=== PATIENT | female | born 1990 | race Caucasian/White ===

== ENCOUNTER 2017-03-14 12:50 | Emergency (ER) | payer SELFPAY ==
[2017-03-14 13:00] VITALS: BP 137/78
== END 2017-03-14 15:24 | disposition left against medical advice (07) ==
LOC: UCEAST 12:50
DX: M54.9 Dorsalgia, unspecified (principal); Z53.21 Procedure and treatment not carried out due to patient leaving prior to being seen by health care provider

== ENCOUNTER 2018-01-02 08:34 | Emergency (ER) | payer MEDICAID, OTHER ==
[2018-01-02 08:52] VITALS: BP 128/85
--- NOTE | 2018-01-02 14:37 | UC ---
Valentina Cruz Thomas, scribed for Selene Murillo DO on 01/02/18 at 0919 . Palpitation/Dysrhythmia HP - HPI Summary HPI Summary: The patient is a 27 year old female complaining of pounding heart palpitations for the last two days. She reports that the palpitations are worst at night, although she occasionally has palpitations throughout the day. She has mild palpitations at urgent care. The patient denies anxiety, dizziness, chest pain, shortness of breath, nausea, vomiting, abdominal pain, jaw pain, neck pain, arm pain, headache, sore throat, and eye discharge. She was put on Wellbutrin one month ago for a diagnosis of seasonal depression. - History of Current Complaint Chief Complaint: UCChestPain Stated Complaint: CHEST COMPLAINT Time Seen by Provider: 01/02/18 08:42 Hx Obtained From: Patient Hx Last Menstrual Period: a few months ago, has implant Onset/Duration: Lasting Days, Still Present Timing: Intermittent Episodes Lasting: Severity Initially: Moderate Severity Currently: Mild Pain Intensity: 0 Pain Scale Used: 0-10 Numeric Character: Pounding Aggravating Factor(s): Nothing Alleviating Factor(s): Nothing Associated Signs & Symptoms: Positive: Negative - anxiety, dizziness, chest pain , shortness of breath, nausea, vomiting, abdominal pain, jaw pain, neck pain, arm pain, headache, sore throat, and eye discharge - Allergy/Home Medications Allergies/Adverse Reactions: Allergies Allergy/AdvReac Type Severity Reaction Status Date / Time No Known Allergies Allergy Verified 01/02/18 08:52 Home Medications: Home Medications Bupropion XL* [Wellbutrin XL *] 300 mg PO DAILY 01/02/18 [History Confirmed ] Ibuprofen TAB* [Advil TAB*] 800 mg PO Q6H PRN 01/02/18 [History Confirmed ] PMH/Surg Hx/FS Hx/Imm Hx GI/ History: Kidney Stones, Other Other GI/ History: Hernia Psychological History: Other Other Psychological History: Seasonal depression - Surgical History Surgical History: Yes Surgery Procedure, Year, and Place: 1989 hernia repair. 2010 Kidney stent, left - Family History Known Family History: Positive: Hypertension, Diabetes - Social History Alcohol Use: None Substance Use Type: None Smoking Status (MU): Former Smoker Type: Cigarettes Amount Used/How Often: 2-3/day Length of Time of Smoking/Using Tobacco: 5 years Have You Smoked in the Last Year: Yes Household Exposure Type: Cigarettes - Immunization History Most Recent Influenza Vaccination: 05/03/15 Most Recent Tetanus Shot: 05/03/15 Most Recent Pneumonia Vaccination: none Review of Systems Cardiovascular: Palpitations Psychological: Other - NEGATIVE: anxiety Is Patient Immunocompromised?: No All Other Systems Reviewed And Are Negative: Yes Physical Exam - Summary Physical Exam Summary: Appearance: Well-Appearing, No Pain Distress, Well-Nourished, Obese Eyes: conjunctiva clear, no discharge ENT: Hearing grossly normal, no muffled/hoarse voice. Neck: Normal, Supple Respiratory/Lung Sounds: Lungs clear, Normal breath sounds, No respiratory distress, No accessory muscle use Cardiovascular: RRR, No murmur Musculoskeletal: Normal Neurological: Alert, muscle tone normal Psychiatric:Normal, age appropriate behavior Skin: Normal, Warm, Dry, Normal color Triage Information Reviewed: Yes Vital Signs: Initial Vital Signs Temp 98.4 F 01/02/18 08:48 Pulse 86 01/02/18 08:48 Resp 16 01/02/18 08:48 BP 128/85 01/02/18 08:48 Pulse Ox 96 01/02/18 08:48 Vital Signs Reviewed: Yes Diagnostics - Laboratory Diagnostic Studies Completed/Ordered: EKG. Obtained at 8:40. Sinus rhythm at [address] changes. Palpitations Course/Dx - Course Course Of Treatment: The patient is a 27 year old female complaining of pounding heart palpitations for the last two days. She is on Wellbutrin. Medications reviewed. EKG shows sinus rhythm at [address] changes. Elevated BP noted. She will follow up with her primary care provider. The patient is agreeable with this plan. - Differential Dx/Diagnosis Provider Diagnoses: Palpitations, Elevated blood pressure without diagnosis of hypertension Discharge - Sign-Out/Discharge Documenting (check all that apply): Discharge/Admit/Transfer - Discharge Plan Condition: Stable Disposition: HOME Patient Education Materials: Heart Palpitations (DC) Referrals: Noam Hernandez, [employer]IST[employer] [Primary Care Provider] - (Follow up in 3-5 days. ) Additional Instructions: WELLBUTRIN IS SOMETIMES ASSOCIATED WITH PALPITATIONS. SO YOUR SYMPTOMS MAY BE A RESULT OF THIS NEW MEDICATION. IF SYMPTOMS WORSEN OR NEW ONES DEVELOP BEFORE YOU ARE SEEN BY YOUR PCP, YOU SHOULD BE SEEN AGAIN. Your blood pressure was elevated at this visit. That does not mean you have hypertension, it is probably due to your current condition. Please follow up with your primary care provider. The documentation as recorded by the Valentina bustos Thomas accurately reflects the service I personally performed and the decisions made by me, Selene Murillo DO.
== END 2018-01-02 09:32 | disposition home or self-care (01) ==
LOC: UCEAST 08:34
DX: R00.2 Palpitations (principal); R03.0 Elevated blood-pressure reading, without diagnosis of hypertension; Z87.891 Personal history of nicotine dependence
CPT/HCPCS: 93005; 99211; G0463